=== PATIENT | male | born 1995 | race American Indian/Alaskan Native ===

== ENCOUNTER 2020-08-25 16:55 | Emergency (ER) | payer SELFPAY ==
[2020-08-25 17:22] VITALS: BP 130/59
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
== END 2020-08-25 19:22 | disposition home or self-care (01) ==
LOC: ED 16:55
DX: M54.5 Low back pain (principal); J45.909 Unspecified asthma, uncomplicated; Z79.899 Other long term (current) drug therapy
CPT/HCPCS: 72100